=== PATIENT | male | born 1990 | race Caucasian/White ===

== ENCOUNTER 2016-05-20 23:12 | Emergency (ER) | payer OTHER ==
--- NOTE | 2016-05-20 23:35 | EDPHY ---
H & P Stated Complaint: bilat hands and feet locked up 2 hr ago resolving HPI/ROS: HPI CHIEF COMPLAINT: Tingling in the hands, tingling in the feet, spasm of the hands HISTORY OF PRESENT ILLNESS: This patient 25-year-old male, otherwise healthy, denies taking any daily medications, denies having a significant medical history except for alcoholism, presents emergency room by private vehicle 1130 at night for tingling in his hands and tingling in his feet. He tells me that he was in the bathtub reading a book. He all of a sudden got tingling in his hands. He thought it was due to the positioning of his hands while holding the book. Tells me he then started getting tingling in his feet. His hands turned inward with spasms. He tells me did not feel anxious. He did have a remote history of an anxiety attack with similar symptoms years ago. Currently upon arrival to the emergency room is, cooperative he denies any complaints he does tell me that he does have some tingling in his bilateral hands at this time however it has greatly improved. He denies hyperventilating. Past Medical History: Denies significant medical history except recovering alcohol Past Surgical History: Denies significant surgical history Social History: Denies use of drugs, tobacco, alcohol, does endorse VAPE PEN Family History: Noncontributory ROS REVIEW OF SYSTEMS: A comprehensive 10 point review of systems is otherwise negative aside from elements mentioned in the history of present illness. Exam Constitutional triage nursing summary reviewed, vital signs reviewed, awake/ alert. Eyes normal conjunctivae and sclera, EOMI, PERRLA. HENT normal inspection, atraumatic, moist mucus membranes, no epistaxis, neck supple/ no meningismus, no raccoon eyes. Respiratory clear to auscultation bilaterally, normal breath sounds, no respiratory distress, no wheezing. Cardiovascular rate normal, regular rhythm, no murmur, no edema, distal pulses normal. Gastrointestinal soft, non-tender, no rebound, no guarding, normal bowel sounds, no distension, no pulsatile mass. Genitourinary no CVA tenderness. Musculoskeletal no midline vertebral tenderness, full range of motion, no calf swelling, no tenderness of extremities, no meningismus, good pulses, neurovascularly intact. Skin pink, warm, & dry, no rash, skin atraumatic. Neurologic awake, alert and oriented x 3, AAOx3, moves all 4 extremities equally, motor intact, sensory intact, CN II-XII intact, normal cerebellar, normal vision, normal speech. Psychiatric normal mood/affect. Heme/Lymph/Immune no lymphadenopathy. Differential Diagnosis: Includes but is not limited to and in a particular orderAcute anxiety, panic attack, dehydration, electrolyte abnormality, thyroid disease Medical Decision Making: this patient had an IV established will obtain blood work, including TSH, electrolytes, patient be medicated with IV Ativan to see if this improves his symptoms, IV fluids. Will re-evaluate him. Re-evaluation: 1245: Re-evaluation this time this patient is resting comfortably no acute distress. He refused the IV Ativan for acute anxiety. Patient does tell me he is feeling much better he is not having tingling in his hands anymore. He is requesting be discharged home. His blood work has been reviewed is unremarkable vital signs are stable. He appears well nontoxic allowed to go home most likely cause of tingling in his hands and spasms is acute anxiety. Does understand if he has symptoms that return to return emergency room. Source: Patient - Personal History Current Tetanus/Diphtheria Vaccine: Yes Current Tetanus Diphtheria and Acellular Pertussis (TDAP): Yes - Medical/Surgical History Hx Asthma: No Hx Chronic Respiratory Disease: No Hx Diabetes: No Hx Cardiac Disease: No Hx Renal Disease: No Hx Cirrhosis: No Hx Alcoholism: No Hx HIV/AIDS: No Hx Splenectomy or Spleen Trauma: No Other PMH: etoh - Social History Smoking Status: Current every day smoker Constitutional: Initial Vital Signs Temperature (C) 36.6 C 05/20/16 23:20 Heart Rate 69 05/20/16 23:20 Respiratory Rate 17 05/20/16 23:20 Blood Pressure 128/71 H 05/20/16 23:20 O2 Sat (%) 97 05/20/16 23:20 O2 Delivery Mode Room Air Allergies/Adverse Reactions: No Known Allergies Allergy (Unverified 05/20/16 23:18) Home Medications: Medication Instructions Recorded NK [No Known Home Meds] 05/20/16 Medical Decision Making - Data Points Laboratory Results: Laboratory Results 05/20/16 23:45 05/20/16 23:45 05/20/16 23:45 WBC 16.70 H 10^3/uL (3.80-9.50) RBC 5.42 10^6/uL (4.40-6.38) Hgb 16.9 g/dL (13.7-17.5) Hct 46.9 % (40.0-51.0) MCV 86.5 fL (81.5-99.8) MCH 31.2 pg (27.9-34.1) MCHC 36.0 g/dL (32.4-36.7) RDW 12.6 % (11.5-15.2) Plt Count 368 10^3/uL (150-400) MPV 9.0 fL (8.7-11.7) Neut % (Auto) 68.7 % (39.3-74.2) Lymph % (Auto) 24.0 % (15.0-45.0) [place] % (Auto) 5.9 % (4.5-13.0) Eos % (Auto) 0.6 % (0.6-7.6) Baso % (Auto) 0.6 % (0.3-1.7) Nucleat RBC Rel Count 0.0 % (0.0-0.2) Absolute Neuts (auto) 11.47 H 10^3/uL (1.70-6.50) Absolute Lymphs (auto) 4.01 H 10^3/uL (1.00-3.00) Absolute Monos (auto) 0.98 H 10^3/uL (0.30-0.80) Absolute Eos (auto) 0.10 10^3/uL (0.03-0.40) Absolute Basos (auto) 0.10 10^3/uL (0.02-0.10) Absolute Nucleated RBC 0.00 10^3/uL (0-0.01) Immature Gran % 0.2 % (0.0-1.1) Immature Gran # 0.04 10^3/uL (0.00-0.10) Sodium 144 mEq/L (134-144) Potassium 3.7 mEq/L (3.5-5.2) Chloride 107 mEq/L (97-110) Carbon Dioxide 19 L mEq/l (22-31) Anion Gap 18 H mEq/L (8-16) BUN 11 mg/dL (7-23) Creatinine 0.8 mg/dL (0.7-1.3) Estimated GFR > 60 Glucose 121 H mg/dL (70-100) Calcium 10.4 mg/dL (8.5-10.4) Total Bilirubin 0.9 mg/dL (0.1-1.4) Conjugated Bilirubin 0.6 H mg/dL (0.0-0.5) Unconjugated Bilirubin 0.3 mg/dL (0.0-1.1) AST 38 IU/L (17-59) ALT 42 IU/L (21-72) Alkaline Phosphatase 72 IU/L (38-126) Total Protein 8.7 H g/dL (6.3-8.2) Albumin 5.2 H g/dL (3.5-5.0) TSH 4.670 uIU/mL (0.465-4.680) Medications Given: Discontinued Medications Sodium Chloride (Ns) 1,000 mls @ 0 mls/hr IV ONCE ONE PRN Reason: Wide Open Stop: 05/20/16 23:41 Last Admin: 05/21/16 00:00 Dose: 1,000 mls Departure - Departure Disposition: Home, Routine, Self-Care Clinical Impression: Anxiety Condition: Good Instructions: Paresthesia (ED) Additional Instructions: 1. stay well-hydrated drink lots of fluids. 2. return emergency room if you have any worsening symptoms questions or concerns. Referrals: NONE *PRIMARY CARE P,. [Primary Care Provider] - As per Instructions
[2016-05-20] MEDS ORDERED: LORazepam 2 MG/ML INJ IVP ONE (23:40)
[2016-05-20] MEDS ORDERED: NS 1,000 ML IV ONE (23:40)
[2016-05-20 23:52] LABS: % IMMATURE GRANULYOCYTES 0.2 % (0.0-1.1); ABSOLUTE IMMATURE GRANULOCYTES 0.04 10^3/uL (0.00-0.10); ADD DIFF? NO; ADD MORPH? NO; ADD SCAN? NO; ATYPICAL LYMPHOCYTE FLAG 0 (0-99); FRAGMENT RBC FLAG 0 (0-99); HEMATOCRIT 46.9 % (40.0-51.0); HEMOGLOBIN 16.9 g/dL (13.7-17.5); LEFT SHIFT FLG 0 (0-99); LIPEMIA HEMOLYSIS FLAG 90 (0-99); MEAN CELL HEMOGLOBIN 31.2 pg (27.9-34.1); MEAN CELL VOLUME 86.5 fL (81.5-99.8); PLATELET CLUMPS FLAG 0 (0-99); PLATELET COUNT 368 10^3/uL (150-400); RED BLOOD CELL COUNT 5.42 10^6/uL (4.40-6.38); RED CELL DISTRIBUTION WIDTH 12.6 % (11.5-15.2)
[2016-05-21 00:13] LABS: ALANINE AMINOTRANSFERASE 42 IU/L (21-72); ALBUMIN 5.2 g/dL (3.5-5.0); ALKALINE PHOSPHATASE 72 IU/L (38-126); ANION GAP 18 mEq/L (8-16); ASPARTATE AMINOTRANSFERASE 38 IU/L (17-59); BILIRUBIN,TOTAL 0.9 mg/dL (0.1-1.4); BILIRUBIN-CONJUGATED 0.6 mg/dL (0.0-0.5); BILIRUBIN-UNCONJUGATED 0.3 mg/dL (0.0-1.1); CALCIUM 10.4 mg/dL (8.5-10.4); CARBON DIOXIDE 19 mEq/l (22-31); CHLORIDE 107 mEq/L (97-110); CREATININE 0.8 mg/dL (0.7-1.3); GLOMERULAR FILTRATION RATE > 60; GLUCOSE 121 mg/dL (70-100); POTASSIUM 3.7 mEq/L (3.5-5.2); SODIUM 144 mEq/L (134-144); TOTAL PROTEIN 8.7 g/dL (6.3-8.2)
[2016-05-21 01:03] VITALS: BP 115/74; PULSE 73; RESP 16; TEMP 98.1; O2SAT 95
== END 2016-05-21 01:03 | disposition home or self-care (01) ==
DX: F41.9 Anxiety disorder, unspecified (principal); F17.200 Nicotine dependence, unspecified, uncomplicated